=== PATIENT | male | born 1955 | race Caucasian/White ===

== ENCOUNTER 2020-07-13 17:27 | Emergency (ER) | payer OTHER, MEDICAID ==
[~2020-07-13] VITALS: Ht 172.7 cm; Wt 90.7 kg
[2020-07-13 17:28] VITALS: BP_SYST 150
--- NOTE | 2020-07-13 17:33 | NUR ---
Patient triaged and placed on wall. VSS and patient appears in no acute distress at this time. Accompanied by flatbed owner operator, awaiting available bed, and MD notified of need for MSE.
[2020-07-13] MEDS ORDERED: levETIRAcetam 500 MG IV PREMIX 100 ML IV ONE (18:45)
--- NOTE | 2020-07-13 19:37 | NUR ---
Placed in room 03 . Placed on cardiac care nurse, blood pressure machine and pulse oximeter. To gown for exam. Side rails up. Report given to GERI BERGER
[2020-07-13 20:05] LABS: CALCIUM 8.8 mg/dL (8.4-11.0); CREATININE 1.2 mg/dL (0.55-1.30); POTASSIUM 4.7 mmol/L (3.5-5.1)
[2020-07-13 20:13] LABS: BASOPHILS % (AUTO) 0.4 % (0.0-2.0); EOSINOPHILS # (AUTO) 0.1 K/uL (0.0-0.4); EOSINOPHILS % (AUTO) 1.5 % (0.0-4.0); HEMOGLOBIN 14.7 g/dL (14.0-18.0); LYMPHOCYTES # (AUTO) 1.2 K/uL (1.0-5.5); LYMPHOCYTES % (AUTO) 15.8 % (20.5-51.5); MEAN CORPUSCULAR HEMOGLOBIN 32 pg (27-31); MEAN CORPUSCULAR HGB CONC 34 % (32-36); MEAN CORPUSCULAR VOLUME 93 fL (79.0-98.0); MONOCYTES # (AUTO) 0.5 K/uL (0.0-1.0); MONOCYTES % (AUTO) 6.6 % (1.7-9.3); NEUTROPHILS # (AUTO) 5.6 K/uL (1.8-7.7); NEUTROPHILS % (AUTO) 75.7 % (40.0-70.0); PLATELET COUNT (AUTO) 222 K/uL (130-430); RED BLOOD CELL COUNT(AUTO) 4.61 MIL/uL (4.2-6.2); RED CELL DISTRIBUTION WIDTH 14.2 % (9.0-15.0); WHITE BLOOD COUNT (AUTO) 7.4 K/uL (4.8-10.8)
[2020-07-13 20:14] LABS: ALBUMIN 3.9 g/dL (3.4-4.8); TOTAL BILIRUBIN 0.6 mg/dL (0.0-1.0)
--- NOTE | 2020-07-13 20:30 | NUR ---
ER at bedside examining patient.
--- NOTE | 2020-07-13 20:40 | NUR ---
pt arrives from home after having a witnessed seizure at home, which lasted for approx one minute. Pt has a hx of seizures.
--- NOTE | 2020-07-13 20:50 | NUR ---
Keppra IV administered
[2020-07-13 21:00] VITALS: BP_SYST 150
--- NOTE | 2020-07-13 21:00 | NUR ---
Patient given written and verbal discharge instructions and verbalizes understanding. ER MD discussed with patient the results and treatment provided. Patient in stable condition. ID arm band removed. IV catheter removed intact and dressing applied, no active bleeding. Rx of Keppra given. Patient educated on pain management and to follow up with PMD. Pain Scale 0/10. Opportunity for questions provided and answered. Medication side effect fact sheet provided.
== END 2020-07-13 21:00 | disposition home or self-care (01) ==
LOC: SED 17:27
DX: R56.9 Unspecified convulsions (principal)
CPT/HCPCS: 70450; 36415; 76376; 80053; 85025; 96365; 99291; J1953